=== PATIENT | male | born 1950 | race Caucasian/White ===

== ENCOUNTER 2017-08-19 06:44 | Day surgery (SDC) | payer MEDICARE, OTHER ==
[~2017-08-19 06:44] MED LIST: Lactated Ringers 1,000 ML IV SCH; Lidocaine 1%/Sod Bicarbonate in NS 8.4% 1 ML Syringe PRN; Sodium Chloride 0.9% 10 ML Syringe FLUSH PRN
[2017-08-19] MEDS ORDERED: Lidocaine 1% 4 ML ONE (06:47)
[2017-08-19] MEDS ORDERED: Propofol 200 MG/20 ML SDV ONE (06:47)
[2017-08-19] MEDS ORDERED: Midazolam 1 MG/ML 2 ML SDV ONE (06:47)
[2017-08-19] MEDS ORDERED: fentaNYL 250 MCG/5 ML SDV ONE (06:47)
[2017-08-19] MEDS ORDERED: Lidocaine 1% with EPINEPHrine 1:100,000 20 ML MDV ONE (07:10)
[2017-08-19] MEDS ORDERED: Bupivacaine 0.5%/EPINEPHrine 1:200,000 50 ML MDV ONE (07:10)
--- NOTE | 2017-08-19 07:20 | PCM.PREANE ---
Preanesthetic Assessment - Anesthesia/Transfusion/Family Hx Anesthesia History: Prior Anesthesia Without Reaction Family History of Anesthesia Reaction: No Transfusion History: No Prior Transfusion(s) - Review of Systems General: No Symptoms Pulmonary: No Symptoms Cardiovascular: No Symptoms Gastrointestinal: No Symptoms Neurological: No Symptoms Other: Reports: None - Physical Assessment NPO Status Date: 08/18/17 NPO Status Time: 00:00 Pulse: 100 O2 Sat by Pulse Oximetry: 96 Respiratory Rate: 16 Blood Pressure: 153/98 Temperature: 37.0 C Height: 1.91 m Weight: 113.398 kg ASA Class: 2 Mental Status: Alert & Oriented x3 Airway Class: Mallampati = 1 Dentition: Reports: Normal Dentition Thyro-Mental Finger Breadths: 3 Mouth Opening Finger Breadths: 3 ROM/Head Extension: Full Lungs: Clear to Auscultation, Normal Respiratory Effort Cardiovascular: Regular Rate, Regular Rhythm, No Murmurs - Imaging/EKG Impressions: on chart - Allergies Allergies/Adverse Reactions: Allergies Allergy/AdvReac Type Severity Reaction Status Date / Time No Known Allergies Allergy Verified 08/18/17 14:59 - Anesthesia Plan Pre-Op Medication Ordered: None - Acknowledgements Anesthesia Type Planned: General Anesthesia Pt an Appropriate Candidate for the Planned Anesthesia: Yes Alternatives and Risks of Anesthesia Discussed w Pt/Guardian: Yes Pt/Guardian Understands and Agrees with Anesthesia Plan: Yes PreAnesthesia Questionnaire HEENT History: Reports: Impaired Vision, Other (See Below) Other HEENT History: parotiditis, glasses Cardiovascular History: Reports: High Cholesterol, Hypertension Respiratory History: Reports: Other (See Below) Other Respiratory History: shortness of breath with exertion Gastrointestinal History: Reports: GERD, Other (See Below) Other Gastrointestinal History: left inguinal hernia Genitourinary History: Reports: Other (See Below) Other Genitourinary History: decreased libido, erectile dysfunction, hydrocele CLINICAL RESEARCH SCIENTIST History: Reports: None Musculoskeletal History: Reports: None Neurological History: Reports: None Psychiatric History: Reports: Depression Endocrine/Metabolic History: Reports: Obesity/BMI 30+ Hematologic History: Reports: None Immunologic History: Reports: None Oncologic (Cancer) History: Reports: None Dermatologic History: Reports: Other (See Below) Other Dermatologic History: viral warts - Past Surgical History Head Surgeries/Procedures: Reports: None HEENT Surgical History: Reports: None Cardiovascular Surgical History: Reports: None Respiratory Surgical History: Reports: None GI Surgical History: Reports: Colonoscopy Male Surgical History: Reports: Vasectomy Endocrine Surgical History: Reports: None Neurological Surgical History: Reports: None Musculoskeletal Surgical History: Reports: None - SUBSTANCE USE Smoking Status *Q: Current Every Day Smoker Tobacco Use Within Last Twelve Months: Cigarettes Second Hand Smoke Exposure: No Days Per Week of Alcohol Use: 4 Number of Drinks Per Day: 3 Total Drinks Per Week: 12 Recreational Drug Use History: No - HOME MEDS Home Medications: Home Meds Cholecalciferol (Vitamin D3) [Vitamin D3] 5,000 unit PO DAILY 08/18/17 [History] Esomeprazole [NexIUM] 40 mg PO DAILY 08/18/17 [History] FA/Lycopene/Lut/MV,Ca,Iron,Min [Centrum] 1 tab PO DAILY 08/18/17 [History] Flaxseed Oil 1,000 mg PO DAILY 08/18/17 [History] Saw/Vit E/Sod Melba/Lyc/Beta/Pyg [Prostate Health Caplet] 1 tab PO DAILY 08/18/17 [History] Tadalafil [Cialis] 20 mg PO ASDIRECTED PRN 08/18/17 [History] Valsartan/Hydrochlorothiazide [Valsartan-Hctz 160-12.5 mg Tab] 1 tab PO DAILY [History] Zinc 50 mg PO DAILY 08/18/17 [History] amLODIPine [Norvasc] 5 mg PO DAILY 08/18/17 [History] atorvaSTATin [Lipitor] 10 mg PO DAILY 08/18/17 [History] - CURRENT (IN HOUSE) MEDS Current Meds: Current Medications Lactated Ringer's (Ringers, Lactated) 1,000 mls @ 125 mls/hr IV ASDIRECTED ESTEPHANIA Stop: 08/19/17 23:00 Lidocaine/Sodium Bicarbonate (Buffered Lidocaine 1% In Ns 8.4%) 0.25 ml .XX ONETIME PRN PRN Reason: Prior to IV Start Stop: 08/19/17 18:00 Sodium Chloride (Saline Flush) 10 ml FLUSH ASDIRECTED PRN PRN Reason: Keep Vein Open Stop: 08/19/17 18:00 Discontinued Medications Fentanyl (Sublimaze) Confirm Administered Dose 250 mcg .ROUTE .STK-MED ONE Stop: 08/19/17 06:48 Lidocaine HCl (Xylocaine-Mpf 1%) Confirm Administered Dose 4 mls @ as directed .ROUTE .STK-MED ONE Stop: 08/19/17 06:48 Midazolam HCl (Versed 1 Mg/Ml) Confirm Administered Dose 2 mg .ROUTE .STK-MED ONE Stop: 08/19/17 06:48 Propofol (Diprivan 20 Ml) Confirm Administered Dose 200 mg .ROUTE .STK-MED ONE Stop: 08/19/17 06:48
[2017-08-19] MEDS ORDERED: ceFAZolin 1 GM Vial ONE (07:36)
[2017-08-19] MEDS ORDERED: HYDROmorphone 1 MG/ML Syringe ONE (08:28)
[2017-08-19] MEDS ORDERED: ePHEDrine 50 MG/ML SDV ONE (08:35)
[2017-08-19] MEDS ORDERED: Lactated Ringers 1,000 ML ONE (08:38)
--- NOTE | 2017-08-19 09:20 | PCM.OPNOTE ---
- General Post-Op/Procedure Note Date of Surgery/Procedure: 08/19/17 Operative Procedure(s): Left hydrocelectomy Findings: Multiloculated left hydrocele of the testicle and distal spermatic cord Pre Op Diagnosis: Multiloculated left hydrocele Post-Op Diagnosis: Same Anesthesia Technique: General LMA, Local Primary Surgeon: Kyler Austin Pathology: None EBL in mLs: 2 Complications: None Condition: Good Free Text/Narrative:: After supine positioning with monitoring and adequate LMA general anesthesia the patient's scrotum upper thighs and groin areas were prepped with Betadine then the field was draped sterilely with towels. Local analgesia was given in the median raphae of the scrotum. A 15 blade was used to make a 6 cm incision. This incision was deepened with electrocautery to enter the left hemiscrotum. The multiloculated hydrocele along with the testicle and cord were mobilized external to the scrotal sac. I then made a small incision in the hydrocele and essentially clear to straw-colored colored fluid flowed from the hydrocele. I excised the hydrocele wall back to the cord structures and testicle. The other smaller hydroceles were treated in a similar fashion. The testicle was grossly normal. The epididymis and vas were grossly normal as well. I then pexed the left testicle in 3 positions at the 3, 6 and 9 o'clock position with 3-0 Vicryl. I closed the scrotum in 2 layers with a running 3-0 Vicryl ending with 4 -0 subcuticular Vicryl. Dermabond was used for the dressing. Hemostasis throughout the procedure was obtained with electrocautery.
[2017-08-19] MEDS ORDERED: fentaNYL 100 MCG/2 ML SDV IVPUSH PRN (09:25)
[2017-08-19] MEDS ORDERED: Ketorolac 30 MG/ML SDV IVPUSH PRN (09:25)
--- NOTE | 2017-08-19 09:30 | PCM.POSTAN ---
POST ANESTHESIA ASSESSMENT - MENTAL STATUS Mental Status: Alert, Oriented - VITAL SIGNS Pulse Rate: 95 SaO2: 94 Resp Rate: 12 Blood Pressure: 141/99 Temperature: 37.3 C - RESPIRATORY Respiratory Status: Respiratory Rate WNL, Airway Patent, O2 Saturation Stable, Supplemental Oxygen - CARDIOVASCULAR CV Status: Pulse Rate WNL, Blood Pressure Stable - GASTROINTESTINAL GI Status: No Symptoms - PAIN Pain Score: 0 - POST OP HYDRATION Hydration Status: Adequate & Stable - OBSERVATIONS Free Text/Narrative:: no anesthesia complications noted
[2017-08-19] MEDS ORDERED: Acetaminophen 325 MG Tab PO ONE (10:15)
[2017-08-19] MEDS ORDERED: Acetaminophen/Codeine 300-30 MG Tab PO PRN (10:18)
[2017-08-19 10:53] VITALS: BP 137/84
[2017-08-19] MEDS ORDERED: Ondansetron 4 MG/2 ML SDV IVPUSH ONE (14:15)
== END 2017-08-19 11:50 | disposition home or self-care (01) ==
LOC: JD.SDS 06:44 → EDSTATUS 08:00 → JD.SDS 11:50
PROVIDERS: ATTEND Surgery
DX: N43.3 Hydrocele, unspecified (principal); I10 Essential (primary) hypertension; F32.9 Major depressive disorder, single episode, unspecified; N52.9 Male erectile dysfunction, unspecified; K21.9 Gastro-esophageal reflux disease without esophagitis; E78.5 Hyperlipidemia, unspecified; E66.9 Obesity, unspecified; F17.210 Nicotine dependence, cigarettes, uncomplicated; Z79.899 Other long term (current) drug therapy; Z98.52 Vasectomy status; Z90.49 Acquired absence of other specified parts of digestive tract; Z98.890 Other specified postprocedural states; Z68.30 Body mass index [BMI] 30.0-30.9, adult
CPT/HCPCS: 55040; 55500; 93005; A9270; J0690; J1170; J3010; J7120; 00920; J2250; J2704